=== PATIENT | male | born 1965 | race Caucasian/White ===

== ENCOUNTER 2020-04-29 05:16 | Day surgery (SDC) | payer BC ==
[2020-04-27 18:03] VITALS: BMI 23.0
[2020-04-29] MEDS ORDERED: LIDOCAINE HCL 1%, 10 MG/ML (20ML VIAL) ONE (09:22)
[2020-04-29] MEDS ORDERED: MIDAZOLAM HCL 2 MG/2 ML SINGLE DOSE VIAL ONE ×2 (09:25→09:39)
[2020-04-29] MEDS ORDERED: PROPOFOL 20 ML ONE (09:40)
[2020-04-29] MEDS ORDERED: BUPIVACAINE HCL/PF 0.5% (5 MG/ML) 30 ML VIAL IJ ONE (10:16)
[2020-04-29] MEDS ORDERED: LIDOCAINE HCL 1%, 10 MG/ML (20ML VIAL) NR ONE (10:16)
[2020-04-29] MEDS ORDERED: ONDANSETRON 4 MG/2 ML VIAL IVPUSH PRN (10:29)
[2020-04-29] MEDS ORDERED: oxyCODONE HCL 5 MG TABLET PO PRN (10:29)
[2020-04-29] MEDS ORDERED: PROMETHAZINE HCL 25 MG/1 ML VIAL IVPB PRN (10:29)
[2020-04-29 12:23] VITALS: BP 101/55; PULSE 48; TEMP 97.1
== END 2020-04-29 12:30 | disposition home or self-care (01) ==
LOC: JASU-SURG 05:16
PROVIDERS: ATTEND Orthopaedic Surgery
PROC: 0LN70ZZ Release Right Hand Tendon, Open Approach (ICD-10-PCS; principal; 2020-04-29 09:00)
DX: M65.311 Trigger thumb, right thumb (principal)
CPT/HCPCS: 93005; 93010; 94760